=== PATIENT | male | born 1970 | race Native Hawaiian/Other Pacific Islander ===

== ENCOUNTER 2020-06-29 07:42 | Emergency (ER) | payer OTHER ==
[~2020-06-29] VITALS: Ht 160 cm; Wt 68.5 kg
[2020-06-29 07:42] VITALS: TEMP 97.8
[2020-06-29 10:12] VITALS: BP 154/89
== END 2020-06-29 10:12 | disposition home or self-care (01) ==
LOC: ED 07:48
DX: S62.397A Other fracture of fifth metacarpal bone, left hand, initial encounter for closed fracture (principal); V89.2XXA Person injured in unspecified motor-vehicle accident, traffic, initial encounter; Y92.89 Other specified places as the place of occurrence of the external cause
CPT/HCPCS: 96372; 99283; J1885